=== PATIENT | male | born 1975 | race Caucasian/White ===

== ENCOUNTER 2021-12-16 11:38 | Inpatient (IN) | payer OTHER ==
[2021-12-16] MEDS ORDERED: cloNIDine HCL 0.1 MG TABLET PO ONE (12:37)
[2021-12-16] MEDS ORDERED: ONDANSETRON *ODT* 4 MG TABLET SL PRN (12:37)
[2021-12-16] MEDS ORDERED: DICYCLOMINE HCL 10 MG CAPSULE PO PRN (12:37)
[2021-12-16] MEDS ORDERED: METHOCARBAMOL 500 MG TABLET PO PRN (12:37)
[2021-12-16] MEDS ORDERED: MAG HYDROX/AL HYDROX/SIMETH 30 ML UNIT-DOSE CUP PO PRN (12:37)
[2021-12-16] MEDS ORDERED: ACETAMINOPHEN 325 MG TABLET (FP) PO PRN ×2 (12:37)
[2021-12-16] MEDS ORDERED: NALOXONE HCL (KLOXXADO) 8 MG SPRAY NS PRN (12:37)
[2021-12-16] MEDS ORDERED: BISMUTH SUBSALICYLATE 262 MG/15 ML BTL PO PRN (12:37)
[2021-12-16] MEDS ORDERED: diazePAM 5 MG TABLET PO PRN ×2 (12:37)
[2021-12-16] MEDS ORDERED: BUPRENORPHINE HCL 150 MCG, BUPRENORPHINE HCL 75 MCG BC PRN (12:37)
[2021-12-16] MEDS ORDERED: MAGNESIUM HYDROX 2400MG/30ML ORAL SUSPENSION 30 ML CUP PO PRN (12:37)
[2021-12-16] MEDS ORDERED: IBUPROFEN 400 MG TABLET (FP) PO PRN (12:37)
[2021-12-16] MEDS ORDERED: IBUPROFEN 600 MG TABLET (FP) PO PRN (12:37)
[2021-12-16] MEDS ORDERED: NICOTINE 10 MG CARTRIDGE (INHALER) IH PRN (12:37)
[2021-12-16] MEDS ORDERED: BENZOCAINE/MENTHOL (CHLORASEPTIC ) LOZENGE MM PRN (12:37)
[2021-12-16] MEDS ORDERED: MAGNESIUM CITRATE 300 ML BOTTLE PO PRN (12:37)
[2021-12-16] MEDS ORDERED: LOPERAMIDE HCL 2 MG CAPSULE PO PRN (12:37)
[2021-12-16] MEDS ORDERED: BUPRENORPHINE HCL 150 MCG, BUPRENORPHINE HCL 75 MCG BC ONE (13:15)
[2021-12-16 13:50] VITALS: BMI 29.2
[2021-12-16] MEDS ORDERED: BUPRENORPHINE HCL 75 MCG FILM BC ONE (13:54)
[2021-12-16] MEDS ORDERED: BUPRENORPHINE HCL 150 MCG FILM BC ONE (13:54)
[2021-12-16] MEDS: hydrOXYzine PAMOATE 25 MG CAPSULE (FP) PO SCH ×3 (14:26→22:18)
[2021-12-16] MEDS: PRENATAL VITAMINS W/ FOLIC ACID TABLET (FP) PO SCH (14:27)
[2021-12-16] MEDS: NICOTINE 7 MG/24 HOURS TOPICAL PATCH TD SCH (14:27)
[2021-12-16] MEDS ORDERED: cloNIDine HCL 0.1 MG TABLET PO PRN (16:37)
[2021-12-16] MEDS: diazePAM 5 MG TABLET PO SCH ×2 (18:21→22:19)
[2021-12-16] MEDS: AMOX TR/POT CLAV 875MG/125MG TABLETS (FP) PO SCH (18:21)
[2021-12-16] MEDS ORDERED: MELATONIN 5 MG TABLETS PO SCH (22:00)
[2021-12-16] MEDS ORDERED: THIAMINE HCL 100 MG TABLET (FP) PO SCH (22:00)
[2021-12-17] MEDS ORDERED: BUPRENORPHINE HCL 150 MCG, BUPRENORPHINE HCL 75 MCG BC PRN
[2021-12-17] MEDS ORDERED: BUPRENORPHINE HCL 75 MCG FILM BC ONE (04:05)
[2021-12-17] MEDS ORDERED: BUPRENORPHINE HCL 150 MCG FILM BC ONE (04:05)
[2021-12-17] MEDS: diazePAM 5 MG TABLET PO SCH ×2 (05:33→10:21)
[2021-12-17] MEDS: hydrOXYzine PAMOATE 25 MG CAPSULE (FP) PO SCH ×2 (05:33→10:20)
[2021-12-17] MEDS ORDERED: BUPRENORPHINE HCL 150 MCG, BUPRENORPHINE HCL 75 MCG BC SCH (06:00)
[2021-12-17] MEDS: PRENATAL VITAMINS W/ FOLIC ACID TABLET (FP) PO SCH (10:20)
[2021-12-17] MEDS: AMOX TR/POT CLAV 875MG/125MG TABLETS (FP) PO SCH (10:22)
[2021-12-17] MEDS: NICOTINE 7 MG/24 HOURS TOPICAL PATCH TD SCH (10:22)
[2021-12-17] MEDS ORDERED: amLODIPine BESYLATE 5 MG TABLET (FP) PO SCH (12:00)
[2021-12-17 12:06] LABS: HEMATOCRIT 44.6 % (35.4-49); HEMOGLOBIN 15.6 GM/dL (11.7-16.9); MCH 31.9 pg (25.7-33.7); MCHC 34.9 g/dl (32.0-35.9); MEAN CELL VOLUME 91.6 fl (80-96); MEAN PLT VOLUME 8.5 fl (7.5-11.1); PLATELET COUNT 142 10^3/uL (134-434); RBC 4.87 M/mm3 (4.00-5.60); RDW 13.5 % (11.9-15.9); WHITE BLOOD COUNT 4.2 K/mm3 (4.0-10.0)
[2021-12-17 12:20] LABS: BLOOD UREA NITROGEN 18.1 mg/dL (7-18)
[2021-12-17 12:22] LABS: ALBUMIN 5.2 g/dl (3.4-5.0); CALCIUM 9.7 mg/dL (8.5-10.1); CREATININE 1.3 mg/dL (0.55-1.3)
[2021-12-17 12:24] LABS: BILIRUBIN,TOTAL 0.8 mg/dL (0.2-1)
[2021-12-17 12:29] LABS: TOT PROT 8.5 g/dl (6.4-8.2)
[2021-12-17 13:14] VITALS: BP 148/95; PULSE 87; TEMP 96.8
[2021-12-17] MEDS ORDERED: SUVOREXANT 10 MG TABLET PO PRN (22:00)
[2021-12-18] MEDS ORDERED: diazePAM 5 MG TABLET PO SCH (06:00)
[2021-12-18] MEDS ORDERED: BUPRENORPHINE HCL 450 MCG FILM BC SCH (06:00)
[2021-12-19] MEDS ORDERED: BUPRENORPHINE/NALOXONE 4 MG/1 MG FILM PACKET SL SCH (06:00)
[2021-12-19] MEDS ORDERED: diazePAM 5 MG TABLET PO SCH (06:00)
[2021-12-20] MEDS ORDERED: BUPRENORPHINE/NALOXONE 8 MG/2 MG FILM PACKET SL ONE (06:00)
[2021-12-20] MEDS ORDERED: diazePAM 5 MG TABLET PO ONE (06:00)
== END 2021-12-17 13:31 | disposition left against medical advice (07) | DRG 894 ==
LOC: YASAS 11:38 → Y6N 12:45
PROVIDERS: ADMIT Allergy & Immunology; ATTEND Surgery
PROC: HZ2ZZZZ Detoxification Services for Substance Abuse Treatment (ICD-10-PCS; principal; 2021-12-16)
DX: F10.230 Alcohol dependence with withdrawal, uncomplicated (principal); F19.282 Other psychoactive substance dependence with psychoactive substance-induced sleep disorder; F11.20 Opioid dependence, uncomplicated; F13.20 Sedative, hypnotic or anxiolytic dependence, uncomplicated; F17.210 Nicotine dependence, cigarettes, uncomplicated; F18.24 Inhalant dependence with inhalant-induced mood disorder; G47.33 Obstructive sleep apnea (adult) (pediatric); G62.9 Polyneuropathy, unspecified; L03.031 Cellulitis of right toe; Z28.310 Unvaccinated for COVID-19
CPT/HCPCS: 36415; 80053; 85027; 86780; 93005; 93010; C9803-CS; J0735; U0003; U0005